=== PATIENT | female | born 1985 | race African-American/Black ===

== ENCOUNTER 2025-09-21 09:34 | Emergency (ER) | payer OTHER ==
[~2025-09-21] VITALS: Ht 170.2 cm; Wt 101.0 kg
[2025-09-21 09:57] VITALS: O2SAT 100
[2025-09-21] MEDS ORDERED: METH4TAB95 MT (11:14)
[2025-09-21] MEDS: DEXAMETHASONE 10 MG/ML VIAL IV ONE (11:22)
[2025-09-21] MEDS: KETOROLAC 30MG/ML VIAL IM ONE (11:23)
[2025-09-21 11:29] VITALS: BP 110/58; PULSE 87; RESP 16; TEMP 37.6; O2SAT 100
[2025-09-21 11:53] LABS: INFLUENZA TYPE A Presumptive Negative (Pres. Neg.); INFLUENZA TYPE B Presumptive Negative (Pres. Neg.)
[2025-09-21 12:27] LABS: CLARITY URINE CLEAR (CLEAR); COLOR URINE YELLOW (YELLOW); GLUCOSE URINE NEGATIVE (NEGATIVE); KETONES URINE TRACE (NEGATIVE); LEUKOCYTE ESTERASE URINE NEGATIVE (NEGATIVE); NITRITE URINE NEGATIVE (NEGATIVE); OCCULT BLOOD URINE NEGATIVE (NEGATIVE); PH URINE 8.5 (4.5-8.0); PROTEIN URINE NEGATIVE (NEGATIVE); SPECIFIC GRAVITY URINE 1.019 (1.005-1.030); UROBILINOGEN URINE 0.2 E.U./dL (0.2-1.0)
== END 2025-09-21 11:31 | disposition home or self-care (01) ==
LOC: ER 09:34
DX: B34.9 Viral infection, unspecified (principal); Z20.822 Contact with and (suspected) exposure to COVID-19; Z98.890 Other specified postprocedural states
CPT/HCPCS: 99284; 96374; 87426; 81003; 81025; 87430; 87070; 87804 ×2; 96372; J1885; J1100